=== PATIENT | female | born 1975 | race Caucasian/White ===

== ENCOUNTER 2016-11-13 13:33 | Day surgery (SDC) | payer MEDICAID, MEDICARE ==
[~2016-11-13 13:33] MED LIST: ALBU8.5H2 IH; BACL20TA PO; CALC1TAB91 PO; CHOL10008 PO; CYAN250014 PO; DULO60CA42 PO; FING0.5C3 PO; IMI100 PO; KLO5T PO; METH5TAB3 PO; OMEP20CA11 PO; OXYC5TAB72 PO; TIZA4TAB PO; ZLP10T PO
[2016-11-13] MEDS ORDERED: MethylprednisoLONE Depot 80 mg/mL Inj ONE (13:34)
[2016-11-13] MEDS ORDERED: Bupivacaine-MPF 0.25% 30 mL Inj ONE (13:34)
[2016-11-13 14:30] VITALS: BP 118/75; PULSE 82; RESP 20; O2SAT 98
[2016-11-13] MEDS ORDERED: MORP30TA PO (14:38)
--- NOTE | 2016-11-13 16:50 | PCM.PROC ---
Procedure Note Date of Service: Nov 13, 2016 Pre Procedure Diagnosis: PROCEDURE: LEFT Ultrasound-guided trochanteric bursa injection PRE-PROCEDURE DIAGNOSIS: Trochanteric bursitis POST-PROCEDURE DIAGNOSIS: same INDICATION: 41-year-old female with LEFT hip pain consistent with trochanteric bursitis PERFORMED BY: Arnaldo Carrasquillo MD DESCRIPTION OF PROCEDURE: Patient was met in the holding area. Consent was signed, site was confirmed and all questions were answered. Patient was taken to the procedure suite and placed in the contra-lateral decubitus position on the procedure table. Area was prepped and draped in sterile fashion. Local anesthesia with 1% lidocaine was injected into the skin and subcutaneous tissues. The trochanteric bursa was identified by US and a 3-inch 22-gauge Quincke spinal needle was advanced under direct ultrasound visualization to the trochanteric bursa. After negative aspiration, 40 mg of Depo-Medrol mixed with 2 cc of 0.25% bupivacaine was injected without incident. Patient tolerated the procedure well ANESTHESIA: Local. EBL: None. No Blood Products Used COMPLICATIONS: None SPECIMENS: None POST-PROCEDURE DISPOSITION: Patient was returned to the holding area in stable condition. They were discharged home when all discharge criteria were met. DISCHARGE MEDICATIONS: FOLLOW UP: Continue conservative therapy, PT Keep scheduled followup Arnaldo Carrasquillo MD * Pain Management * Anesthesiology Arnaldo Carrasquillo MD Nov 13, 2016 16:50
[2016-11-26] MEDS ORDERED: CYAN250010 PO (15:08)
[2016-11-26] MEDS ORDERED: MS15TCR PO (15:08)
[2017-02-17] MEDS ORDERED: MAGN100T5 PO (17:23)
== END 2016-11-13 23:59 | disposition home or self-care (01) ==
LOC: END 13:33
PROVIDERS: ATTEND Anesthesiology Pain Medicine
DX: M70.61 Trochanteric bursitis, right hip (principal); G35 Multiple sclerosis; G89.4 Chronic pain syndrome; M79.7 Fibromyalgia; Z86.73 Personal history of transient ischemic attack (TIA), and cerebral infarction without residual deficits; Z79.891 Long term (current) use of opiate analgesic
CPT/HCPCS: 20610; J1040

== ENCOUNTER 2016-11-27 10:15 | Day surgery (SDC) | payer MEDICAID, MEDICARE ==
[~2016-11-27] VITALS: Ht 160 cm; Wt 69.6 kg
[~2016-11-27 10:15] MED LIST changes: -CALC1TAB91 PO; +CYAN250010 PO; -METH5TAB3 PO; +MS15TCR PO
[2016-11-27] MEDS ORDERED: MethylprednisoLONE Depot 80 mg/mL Inj ONE (10:16)
[2016-11-27] MEDS ORDERED: Bupivacaine-MPF 0.25% 30 mL Inj ONE (10:16)
[2016-11-27] MEDS ORDERED: OXYB5TAB PO (10:59)
[2016-11-27 11:00] VITALS: BP 101/66; PULSE 94; RESP 14; O2SAT 96
--- NOTE | 2016-11-27 16:36 | PCM.PROC ---
Procedure Note Date of Service: Nov 27, 2016 Pre Procedure Diagnosis: PROCEDURE: RIGHT Ultrasound-guided trochanteric bursa injection PRE-PROCEDURE DIAGNOSIS: Trochanteric bursitis POST-PROCEDURE DIAGNOSIS: same INDICATION: 41-year-old female with RIGHT lateral hip pain consistent with trochanteric bursitis PERFORMED BY: Arnaldo Carrasquillo MD DESCRIPTION OF PROCEDURE: Patient was met in the holding area. Consent was signed, site was confirmed and all questions were answered. Patient was taken to the procedure suite and placed in the contra-lateral decubitus position on the procedure table. Area was prepped and draped in sterile fashion. Local anesthesia with 1% lidocaine was injected into the skin and subcutaneous tissues. The trochanteric bursa was identified by US and a 3-inch 22-gauge Quincke spinal needle was advanced under direct ultrasound visualization to the trochanteric bursa. After negative aspiration, 40 mg of Depo-Medrol mixed with 2 cc of 0.25% bupivacaine was injected without incident. Patient tolerated the procedure well POST-PROCEDURE DISPOSITION: Patient was returned to the holding area in stable condition. They were discharged home when all discharge criteria were met. DISCHARGE MEDICATIONS: FOLLOW UP: Continue conservative therapy, PT Keep scheduled followup Arnaldo Astorga MD, MD Nov 27, 2016 16:36
[2017-02-17] MEDS ORDERED: MAGN100T5 PO (17:23)
== END 2016-11-27 23:59 | disposition home or self-care (01) ==
LOC: END 10:15
PROVIDERS: ATTEND Anesthesiology Pain Medicine
DX: M70.61 Trochanteric bursitis, right hip (principal); G35 Multiple sclerosis; G89.4 Chronic pain syndrome; Z79.891 Long term (current) use of opiate analgesic
CPT/HCPCS: 20611; J1040

== ENCOUNTER 2017-02-19 10:25 | Day surgery (SDC) | payer MEDICAID, MEDICARE ==
[~2017-02-19] VITALS: Ht 160 cm; Wt 91.0 kg
[~2017-02-19 10:25] MED LIST changes: -CYAN250014 PO; +MAGN100T5 PO; -MS15TCR PO; -OXYC5TAB72 PO; -TIZA4TAB PO
[2017-02-19] MEDS ORDERED: MethylprednisoLONE Depot 80 mg/mL Inj ONE (10:26)
[2017-02-19] MEDS ORDERED: Bupivacaine-MPF 0.25% 30 mL Inj ONE (10:26)
[2017-02-19] MEDS ORDERED: MORP10SO PO (10:47)
[2017-02-19] MEDS ORDERED: OXYC5CAP4 PO (10:48)
[2017-02-19] MEDS ORDERED: PRE20 PO (10:49)
[2017-02-19 10:50] VITALS: BP 120/92; PULSE 65; RESP 18; O2SAT 100
--- NOTE | 2017-02-19 15:05 | PCM.PROC ---
Procedure Note Date of Service: February 19, 2017 Pre Procedure Diagnosis: PROCEDURE: Ultrasound guided injection of the RIGHT shoulder/biceps insertion PRE-PROCEDURE DIAGNOSIS: Shoulder arthropathy, rotator cuff syndrome, bicep tendinopathy POST-PROCEDURE DIAGNOSIS: same INDICATION: 41-year-old female with RIGHT shoulder pain PERFORMED BY: Arnaldo Carrasquillo MD DESCRIPTION OF PROCEDURE: Patient was met in the holding area. Consent was signed, site was confirmed and all questions were answered. Patient was taken to the procedure suite and placed sitting on the procedure table. Ipsilateral arm was folded across the chest to maximally expose ultrasound view of the glenohumeral joint. Posterior aspect of shoulder was anesthetized with 1 % lidocaine in the skin and subcutaneous tissues. Area was prepped and draped in sterile fashion and a 3-1/2 inch 22-gauge Quincke spinal needle was advanced under direct ultrasound visualization into the glenohumeral joint. 80 mg of Depo-Medrol was injected without incident. With 0.25% bupivacaine POST-PROCEDURE DISPOSITION: Patient was returned to the holding area in stable condition. They were discharged home when all discharge criteria were met. Evaluation/Physical Exam before discharge revealed: DISCHARGE MEDICATIONS: FOLLOW UP: Keep scheduled follow-up Arnaldo Carrasquillo MD cc: Arnaldo Carrasquillo MD February 19, 2017 15:04
== END 2017-02-19 23:59 | disposition home or self-care (01) ==
LOC: END 10:25
PROVIDERS: ATTEND Anesthesiology Pain Medicine
DX: M75.101 Unspecified rotator cuff tear or rupture of right shoulder, not specified as traumatic (principal); M25.511 Pain in right shoulder; M12.9 Arthropathy, unspecified; M75.81 Other shoulder lesions, right shoulder; G35 Multiple sclerosis; M79.7 Fibromyalgia; Z86.73 Personal history of transient ischemic attack (TIA), and cerebral infarction without residual deficits; Z87.891 Personal history of nicotine dependence
CPT/HCPCS: 20611; J1040